=== PATIENT | female | born 1985 | race Native Hawaiian/Other Pacific Islander ===

== ENCOUNTER 2022-01-06 09:16 | Emergency (ER) | payer MEDICAID ==
[~2022-01-06] VITALS: Ht 152.4 cm; Wt 73.9 kg
[2022-01-06 09:21] VITALS: BP 103/58
--- NOTE | 2022-01-06 09:25 | NUR ---
PT AMBULATED TO BED 4
--- NOTE | 2022-01-06 09:36 | NUR ---
6 WEEKS , ALREADY SEEN BY , U/S AT BS PT SHOWS NO AC DISTRESS
[2022-01-06 10:16] LABS: APPEARANCE,URINE CLEAR (CLEAR); BILIRUBIN,URINE NEGATIVE (NEGATIVE); BLOOD, URINE 2+ (NEGATIVE); COLOR,URINE YELLOW (YELLOW); LEUKOCYTE ESTERASE ,URINE NEGATIVE (NEGATIVE); NITRITE, URINE NEGATIVE (NEGATIVE); UGLUCOSE NEGATIVE (NEGATIVE)
[2022-01-06 10:26] LABS: BASOPHILS # (AUTO) 0.1 K/uL (0.00-0.22); BASOPHILS % (AUTO) 0.6 % (0.0-2.0); EOSINOPHILS # (AUTO) 0.1 K/uL (0-0.4); EOSINOPHILS % (AUTO) 1.3 % (0.0-4.0); HEMOGLOBIN 12.5 g/dL (12.0-16.0); LYMPHOCYTES # (AUTO) 1.4 K/uL (2.5-16.5); MEAN CORPUSCULAR HEMOGLOBIN 30 pg (27-31); MEAN CORPUSCULAR HGB CONC 34 g/dL (33-37); MEAN CORPUSCULAR VOLUME 89.8 fL (80-94); MONOCYTES # (AUTO) 0.6 K/uL (0.8-1.0); MONOCYTES % (AUTO) 6.2 % (1.7-9.3); NEUTROPHILS # (AUTO) 8.3 K/uL (1.8-7.7); NEUTROPHILS % (AUTO) 78.9 % (42.2-75.2); PLATELET COUNT (AUTO) 272 K/uL (140-450); RED BLOOD CELL COUNT(AUTO) 4.12 MIL/uL (4.20-5.40); RED CELL DISTRIBUTION WIDTH 13.1 % (11.6-13.7); WHITE BLOOD COUNT (AUTO) 10.5 K/uL (4.8-10.8)
[2022-01-06 10:34] LABS: ALBUMIN 3.3 g/dL (3.4-5.0); ANION GAP 12.2 (8-16); CARBON DIOXIDE 27.5 mmol/L (21-32); CREATININE 0.7 mg/dL (0.6-1.3); POTASSIUM 3.7 mmol/L (3.5-5.1); TOTAL BILIRUBIN 0.3 mg/dL (0.0-1.0)
[2022-01-06 10:50] LABS: RBC,URINE 0-5 /HPF (0-5); TRICHOMONAS,URINE None Seen /HPF (None Seen); WBC,URINE NONE SEEN /HPF (0-5); YEAST,URINE None Seen /HPF (None Seen)
--- NOTE | 2022-01-06 11:55 | NUR ---
RESTING IN BED, SHOWS NO AC DISTRESS, O2 SAT 99 RA, SR UP TIMES 2. AWAITS DISPO
[2022-01-06 12:28] VITALS: BP 105/72
--- NOTE | 2022-01-06 12:30 | NUR ---
Patient discharged with v/s stable. Written and verbal after care instructions given and explained. Patient verbalized understanding. Ambulatory with steady gait. All questions addressed prior to discharge. Advised to follow up with PMD.
== END 2022-01-06 12:30 | disposition home or self-care (01) ==
LOC: MED 09:16
DX: O46.91 Antepartum hemorrhage, unspecified, first trimester (principal); Z20.822 Contact with and (suspected) exposure to COVID-19; Z3A.01 Less than 8 weeks gestation of pregnancy
CPT/HCPCS: 36415; 76801; 76830; 80053; 81001; 81025; 84702; 85025; 86900; 86901; 87426; 87804; 99284; Q0092

== ENCOUNTER 2022-01-31 12:09 | Emergency (ER) | payer MEDICAID ==
[~2022-01-31] VITALS: Ht 157.5 cm; Wt 61.7 kg
[2022-01-31 12:21] VITALS: BP 108/50
[2022-01-31] MEDS ORDERED: DEXT 5% /NACL 0.9% 1,000 ML IV ONE (12:50)
[2022-01-31] MEDS ORDERED: ONDANSETRON 4 MG/2 ML VIAL IVP ONE (12:50)
--- NOTE | 2022-01-31 13:17 | NUR ---
PT AMB TO BED3.
[2022-01-31 13:41] LABS: BASOPHILS % (AUTO) 0.5 % (0.0-2.0); EOSINOPHILS % (AUTO) 0.4 % (0.0-4.0); HEMATOCRIT 39.9 % (36-48); HEMOGLOBIN 13.4 g/dL (12.0-16.0); LYMPHOCYTES # (AUTO) 1.5 K/uL (2.5-16.5); LYMPHOCYTES % (AUTO) 20.8 % (20.5-51.1); MEAN CORPUSCULAR HEMOGLOBIN 30 pg (27-31); MEAN CORPUSCULAR HGB CONC 34 g/dL (33-37); MEAN CORPUSCULAR VOLUME 89.3 fL (80-94); MONOCYTES # (AUTO) 0.4 K/uL (0.8-1.0); MONOCYTES % (AUTO) 5.1 % (1.7-9.3); NEUTROPHILS # (AUTO) 5.3 K/uL (1.8-7.7); NEUTROPHILS % (AUTO) 73.2 % (42.2-75.2); PLATELET COUNT (AUTO) 288 K/uL (140-450); RED BLOOD CELL COUNT(AUTO) 4.46 MIL/uL (4.20-5.40); RED CELL DISTRIBUTION WIDTH 12.9 % (11.6-13.7); WHITE BLOOD COUNT (AUTO) 7.3 K/uL (4.8-10.8)
[2022-01-31 14:13] LABS: ALBUMIN 3.3 g/dL (3.4-5.0); ANION GAP 11.6 (8-16); CARBON DIOXIDE 26.5 mmol/L (21-32); CREATININE 0.5 mg/dL (0.6-1.3); POTASSIUM 4.1 mmol/L (3.5-5.1); TOTAL BILIRUBIN 0.5 mg/dL (0.0-1.0)
[2022-01-31 15:35] LABS: APPEARANCE,URINE SL CLOUDY (CLEAR); BILIRUBIN,URINE NEGATIVE (NEGATIVE); BLOOD, URINE 1+ (NEGATIVE); COLOR,URINE YELLOW (YELLOW); LEUKOCYTE ESTERASE ,URINE NEGATIVE (NEGATIVE); NITRITE, URINE NEGATIVE (NEGATIVE); PH,URINE 6.5 (5.0-9.0); UGLUCOSE NEGATIVE (NEGATIVE)
[2022-01-31 15:47] LABS: OTHER CASTS, URINE None Seen /LPF (None Seen); WBC,URINE 0-5 /HPF (0-5)
[2022-01-31] MEDS ORDERED: CEPH-588 PO (16:29)
[2022-01-31] MEDS ORDERED: ONDA-188 PO (16:29)
[2022-01-31] MEDS ORDERED: ACET-10509 PO (16:29)
[2022-01-31 16:37] VITALS: BP 117/72
--- NOTE | 2022-01-31 16:37 | NUR ---
Patient discharged with v/s stable. Written and verbal after care instructions given and explained. Patient alert, oriented and verbalized understanding of instructions. Ambulatory with steady gait. All questions addressed prior to discharge. ID band removed. Patient advised to follow up with PMD. Patient educated on indication of medication including possible reaction and side effects. Opportunity to ask questions provided and answered.
== END 2022-01-31 16:37 | disposition home or self-care (01) ==
LOC: MED 12:09
DX: O21.0 Mild hyperemesis gravidarum (principal); O98.811 Other maternal infectious and parasitic diseases complicating pregnancy, first trimester; R82.71 Bacteriuria; E86.0 Dehydration; Z3A.08 8 weeks gestation of pregnancy
CPT/HCPCS: 36415; 80053; 81001; 81025; 83690; 85025; 87086; 96361; 96374; 99283; J2405; J7060

== ENCOUNTER 2022-07-19 02:55 | Inpatient (IN) | payer MEDICAID ==
[~2022-07-19] VITALS: Ht 158 cm; Wt 81.2 kg
[~2022-07-19 02:55] MED LIST: ACET-10509 PO; CEPH-588 PO; ONDA-188 PO
[2022-07-19] MEDS ORDERED: LACTATED RINGERS 1,000 ML IV SCH (06:35)
[2022-07-19] MEDS ORDERED: METHYLERGONOVINE 0.2 MG/ML AMP IM PRN ×2 (06:35→08:40)
[2022-07-19] MEDS ORDERED: CARBOPROST 250 MCG/ML AMP IM PRN (06:35)
[2022-07-19 06:44] VITALS: BP 101/55
[2022-07-19 07:19] LABS: BASOPHILS # (AUTO) 0.1 K/uL (0.00-0.22); BASOPHILS % (AUTO) 0.8 % (0.0-2.0); EOSINOPHILS # (AUTO) 0.1 K/uL (0-0.4); EOSINOPHILS % (AUTO) 1.7 % (0.0-4.0); HEMATOCRIT 32.4 % (36-48); HEMOGLOBIN 10.8 g/dL (12.0-16.0); LYMPHOCYTES # (AUTO) 2.1 K/uL (2.5-16.5); LYMPHOCYTES % (AUTO) 28.6 % (20.5-51.1); MEAN CORPUSCULAR HEMOGLOBIN 27 pg (27-31); MEAN CORPUSCULAR HGB CONC 33 g/dL (33-37); MEAN CORPUSCULAR VOLUME 79.8 fL (80-94); MONOCYTES # (AUTO) 0.6 K/uL (0.8-1.0); MONOCYTES % (AUTO) 7.6 % (1.7-9.3); NEUTROPHILS # (AUTO) 4.5 K/uL (1.8-7.7); NEUTROPHILS % (AUTO) 61.3 % (42.2-75.2); PLATELET COUNT (AUTO) 300 K/uL (140-450); RED BLOOD CELL COUNT(AUTO) 4.06 MIL/uL (4.20-5.40); RED CELL DISTRIBUTION WIDTH 13.7 % (11.6-13.7); WHITE BLOOD COUNT (AUTO) 7.4 K/uL (4.8-10.8)
[2022-07-19 07:28] LABS: APPEARANCE,URINE SL CLOUDY (CLEAR); BILIRUBIN,URINE NEGATIVE (NEGATIVE); BLOOD, URINE NEGATIVE (NEGATIVE); COLOR,URINE YELLOW (YELLOW); LEUKOCYTE ESTERASE ,URINE 2+ (NEGATIVE); NITRITE, URINE NEGATIVE (NEGATIVE); PH,URINE 6.5 (5.0-9.0); UGLUCOSE NEGATIVE (NEGATIVE)
[2022-07-19 07:33] LABS: RBC,URINE 0 /HPF (0-5)
[2022-07-19 07:33] LABS: ALBUMIN 2.3 g/dL (3.4-5.0); ANION GAP 11.9 (8-16); CARBON DIOXIDE 24.1 mmol/L (21-32); CREATININE 0.6 mg/dL (0.6-1.3); TOTAL BILIRUBIN 0.3 mg/dL (0.0-1.0)
[2022-07-19 07:34] LABS: PROTHROMBIN TIME 9.3 secs (10.8-13.4)
[2022-07-19] MEDS ORDERED: ceFAZolin 2,000 MG VIAL ONE (07:36)
[2022-07-19] MEDS ORDERED: MORPHINE PRES FREE 10 MG/10 ML AMP IV ONE (07:38)
[2022-07-19] MEDS ORDERED: OXYTOCIN 20 UNITS in LACTATED RINGERS 1,000 ML IV SCH ×2 (08:40→08:45)
[2022-07-19] MEDS ORDERED: oxyCODONE/APAP 5/325 MG 1 TAB TAB PO PRN (08:40)
[2022-07-19] MEDS ORDERED: IBUPROFEN 800 MG TAB PO PRN (08:40)
[2022-07-19] MEDS ORDERED: TEMAZEPAM 15 MG CAP PO PRN (08:40)
[2022-07-19] MEDS ORDERED: KETOROLAC 30 MG/ML VIAL IVP PRN ×3 (08:40→12:30)
[2022-07-19] MEDS ORDERED: NALOXONE 0.4 MG/ML VIAL IVP PRN (08:45)
[2022-07-19] MEDS ORDERED: ACETAMINOPHEN 100 ML IV ONE (08:59)
[2022-07-19] MEDS: diphenhydrAMINE 50 MG/ML VIAL IVP PRN ×2 (09:40→14:27)
[2022-07-19] MEDS: OXYTOCIN 20 UNITS/LR PREMIX 1,000 ML IV ONE ×2 (09:41→09:55)
--- NOTE | 2022-07-19 10:37 | NUR ---
ATTENDED DELIVERY [id number]. BABY GIRL BORN AT 0853. INFANT WAS CLEANED AND STIMULATED. GOOD CRY AND REPFLEXES. SCORES WERE 8/9. NO NEED FOR OXYGEN OR TREATMENT FOR .. BABY AND MOTHER DOING WELL
[2022-07-19] MEDS ORDERED: OXYTOCIN 20 UNITS/LR PREMIX 1,000 ML IV ONE (17:10)
[2022-07-19] MEDS ORDERED: ONDANSETRON 4 MG/2 ML VIAL IVP PRN (17:50)
[2022-07-19] MEDS ORDERED: DOCUSATE SOD/SENNA 50/8.6 MG 1 TAB PO SCH (21:00)
[2022-07-20] MEDS ORDERED: OXYTOCIN 20 UNITS/LR PREMIX 1,000 ML IV ONE (06:04)
[2022-07-20 09:43] LABS: BASOPHILS # (AUTO) 0.1 K/uL (0.00-0.22); BASOPHILS % (AUTO) 0.7 % (0.0-2.0); EOSINOPHILS % (AUTO) 0.3 % (0.0-4.0); HEMATOCRIT 33.2 % (36-48); LYMPHOCYTES # (AUTO) 1.2 K/uL (2.5-16.5); LYMPHOCYTES % (AUTO) 10.6 % (20.5-51.1); MEAN CORPUSCULAR HEMOGLOBIN 26 pg (27-31); MEAN CORPUSCULAR HGB CONC 33 g/dL (33-37); MEAN CORPUSCULAR VOLUME 79.2 fL (80-94); MONOCYTES # (AUTO) 0.7 K/uL (0.8-1.0); MONOCYTES % (AUTO) 5.9 % (1.7-9.3); NEUTROPHILS # (AUTO) 9.7 K/uL (1.8-7.7); NEUTROPHILS % (AUTO) 82.5 % (42.2-75.2); PLATELET COUNT (AUTO) 310 K/uL (140-450); RED BLOOD CELL COUNT(AUTO) 4.18 MIL/uL (4.20-5.40); RED CELL DISTRIBUTION WIDTH 14.1 % (11.6-13.7); WHITE BLOOD COUNT (AUTO) 11.7 K/uL (4.8-10.8)
[2022-07-20] MEDS: SIMETHICONE 80 MG TAB.CHEW PO PRN ×2 (10:23→13:04)
[2022-07-20] MEDS: oxyCODONE/APAP 5/325 MG 1 TAB TAB PO PRN (20:46)
[2022-07-21] MEDS: SIMETHICONE 80 MG TAB.CHEW PO PRN ×3 (01:21→13:00)
[2022-07-21] MEDS: oxyCODONE/APAP 5/325 MG 1 TAB TAB PO PRN (13:00)
== END 2022-07-21 17:10 | disposition home or self-care (01) | DRG 539 ==
LOC: MLD 06:27 → EDSTATUS 07:30 → MFCC 09:45
PROVIDERS: ADMIT Obstetrics & Gynecology; ATTEND Obstetrics & Gynecology
PROC: 0UB70ZZ Excision of Bilateral Fallopian Tubes, Open Approach (ICD-10-PCS; 2022-07-19)
PROC: 10D00Z1 Extraction of Products of Conception, Low, Open Approach (ICD-10-PCS; principal; 2022-07-19 07:30)
DX: O34.211 Maternal care for low transverse scar from previous cesarean delivery (principal); Z20.822 Contact with and (suspected) exposure to COVID-19; Z30.2 Encounter for sterilization; Z37.0 Single live birth; Z3A.37 37 weeks gestation of pregnancy
CPT/HCPCS: 36415; 80053; 81001; 85025; 85610; 85730; 86592; 86886; 86900; 86901; 87081; 87086; 87340; 90715; J1200; J1885; J2270; J2405; J2590; J7120